=== PATIENT | male | born 1935 | race Caucasian/White ===

== ENCOUNTER 2017-08-01 13:38 | Inpatient (IN) | payer MEDICARE ==
[2017-08-01] MEDS ORDERED: Sodium Chloride 0.9% 2,000 ML IV ONE (15:27)
--- NOTE | 2017-08-01 15:27 | C.PDOC ---
History Of Present Illness 81 year old male presents to the ED as a referral from PMD for uncontrolled Diabetes Mellitus and hypotension. Family states patient has also had increased weakness for one month, decreased appetite, and 20 pound weight loss. Family denies fever or any other associated symptoms. REFERRED BY PMD FOR UNCONTROL DM, HYPOTENSION. FAMILY STATES W INCR WEAKNESS X 1 MO. DECREASED APPETITE, +20 LB WT LOSS. NO FEVER, OTHER SX. EXAM MILD DIST NONTOXIC HEENT MM DRY LUNGS CTA B/L NO W/R/R ABD NEG NEURO NO FOCAL DEF CV RRR POOR TURGOR REMAINDER NEG Time Seen by Provider: 08/01/17 15:19 Chief Complaint (Nursing): High Blood Sugar History Per: Patient History/Exam Limitations: no limitations Onset/Duration Of Symptoms: Worse Since (1 month) Current Symptoms Are (Timing): Still Present Associated Infectious Symptoms: denies: Vomiting, Diarrhea Recent travel outside of the [place]: No Additional History Per: Prior Records Past Medical History Reviewed: Historical Data, Nursing Documentation, Vital Signs Vital Signs: Last Vital Signs Temp 97.8 F 08/01/17 14:46 Pulse 77 08/01/17 16:24 Resp 19 08/01/17 16:24 BP 121/53 L 08/01/17 16:24 Pulse Ox 98 08/01/17 16:15 Family History: States: Unknown Family Hx - Social History Hx Alcohol Use: No Hx Substance Use: No - Immunization History Hx Tetanus Toxoid Vaccination: No Hx Influenza Vaccination: No Hx Pneumococcal Vaccination: No Review Of Systems Constitutional: Positive for: Weakness, Weight loss, Other (decreased appetite ) . Negative for: Fever, Chills Cardiovascular: Negative for: Chest Pain, Palpitations Respiratory: Negative for: Cough, Shortness of Breath Gastrointestinal: Negative for: Nausea, Vomiting, Abdominal Pain, Diarrhea Physical Exam - Physical Exam Appears: Non-toxic, In Acute Distress (mild distress) Skin: Warm, Dry, No Rash, Other (poor turgor) Head: Atraumatic, Normacephalic, No Tenderness Eye(s): bilateral: Normal Inspection, PERRL, EOMI Oral Mucosa: Dry Neck: Supple Chest: Symmetrical, No Deformity Cardiovascular: Rhythm Regular, No Murmur Gastrointestinal/Abdominal: Soft, No Tenderness, No Distention, No Guarding, No Rebound Extremity: Capillary Refill (<2 seconds ) Neurological/Psych: Other (no focal deficits) ED Course And Treatment - Laboratory Results Result Diagrams: 08/01/17 15:41 08/01/17 15:41 ECG: Interpreted By Me, Viewed By Me ECG Rhythm: Sinus Rhythm Interpretation Of ECG: Unchanged from EKG on 07/15/2017 Rate From EC O2 Sat by Pulse Oximetry: 98 (RA) Pulse Ox Interpretation: Normal Progress Note: CXR, blood work, labs, and EKG were ordered. Patient was given IV fluids. Progress - Re-Evaluation Re-evaluation Note: 08/01/17 15:55 D/W DR Afshan MOYER WILL ADMIT 08/01/17 16:15 D/W DR AGUSTIN [facility] ICU, WILL EVAL IN ER 08/01/17 16:[address] AGUSTIN ACCEPTS FOR ICU - Data Reviewed Data Reviewed: Lab, Diagnostic imaging, EKG, Old records - Critical Care Citical Care: Excluding Proc Time Critical Care Time: 90 minutes - Continuity of Care Discussed patient case with:: Patient, Family-HIPPA compliant Disposition Counseled Patient/Family Regarding: Studies Performed, Diagnosis, Need For Followup - Disposition Disposition: HOSPITALIZED Disposition Time: 16:30 Condition: SERIOUS Forms: [facility] ([place]) - Clinical Impression Clinical Impression: Hyperglycemia, Hyponatremia, Failure to thrive - Scribe Statement The provider has reviewed the documentation as recorded by the Scribe Aleyda Allan All medical record entries made by the Scribe were at my direction and personally dictated by me. I have reviewed the chart and agree that the record accurately reflects my personal performance of the history, physical exam, medical decision making, and the department course for this patient. I have also personally directed, reviewed, and agree with the discharge instructions and disposition. Decision To Admit - Pt Status Changed To: Hospital Disposition Of: Inpatient - Admit Certification Admit to Inpatient:: After my assessment, the patient will require hospitalization for at least two midnights. This is because of the severity of symptoms shown, intensity of services needed, and/or the medical risk in this patient being treated as an outpatient. - InPatient: Physician Admission Certification: I certify that this patient requires 2 or more midnights of care for the following reason:: SEE NOTE - . Bed Request Type: ICU Admitting Physician: Finn Myoer Patient Diagnosis: Hyperglycemia, Hyponatremia, Failure to thrive
[2017-08-01 15:50] LABS: BASO # 0.1 K/uL (0.0-0.2); BASO % 0.8 % (0.0-2.0); EOS % 0.1 % (0.0-4.0); HEMATOCRIT 39.6 % (35.0-51.0); LYMPH # 1.4 K/uL (1.0-4.3); LYMPH % 19.6 % (20.0-40.0); MEAN CELL VOLUME 93.3 fL (80.0-94.0); MEAN CORPUSCULAR HEMOGLOBIN 31.5 pg (27.0-31.0); MEAN CORPUSCULAR HGB CONC 33.7 g/dL (33.0-37.0); MEAN PLATELET VOLUME 8.8 fL (7.2-11.7); MONO # 0.9 K/uL (0.0-0.8); MONO % 12.4 % (0.0-10.0); NRBC % 0.1 % (0.0-2.0); RED CELL DISTRIBUTION WIDTH 12.5 % (11.5-14.5); WHITE BLOOD COUNT 7.1 K/uL (4.8-10.8)
[2017-08-01] MEDS ORDERED: Sodium Chloride 0.9% 1,000 ML ONE (15:56)
[2017-08-01 16:02] LABS: VENOUS BLOOD GAS BASE EXCESS -7.5 mmol/L (0.0-2.0); VENOUS BLOOD GAS PCO2 37 mmHg (40-60)
[2017-08-01 16:09] LABS: ALB/GLOB RATIO 1.1 (1.0-2.1); ALKALINE PHOSPHATASE 155 U/L (38-126); BILIRUBIN,TOTAL 0.9 mg/dL (0.2-1.3); BLOOD UREA NITROGEN 43 mg/dL (9-20); CALCIUM 8.9 mg/dl (8.6-10.4); CARBON DIOXIDE 19 mmol/L (22-30); CHLORIDE 86 mmol/L (98-107); GFR AFRICAN-AMERICAN 50; GLUCOSE,RANDOM 548 mg/dL (75-110); POTASSIUM 5.6 mmol/L (3.6-5.2); SODIUM 125 mmol/L (132-148); TOTAL PROTEIN 7.7 g/dL (6.3-8.3)
--- NOTE | 2017-08-01 16:12 | RAD ---
PROCEDURE: CHEST RADIOGRAPH, 1 VIEW HISTORY: Diabetic COMPARISON: None available. FINDINGS: LUNGS: The lungs are hyperinflated and there is peribronchial thickening with chronic changes in both lungs. No focal consolidation. PLEURA: No pneumothorax or pleural fluid seen. CARDIOVASCULAR: Normal. OSSEOUS STRUCTURES: No significant abnormalities. VISUALIZED UPPER ABDOMEN: Normal. OTHER FINDINGS: None. IMPRESSION: No active pulmonary disease. COPD.
[2017-08-01] MEDS ORDERED: (Novolin R) Insulin Human Regular 100 units/ml vial IV ONE ×2 (16:15→21:02)
[2017-08-01] MEDS ORDERED: (Novolin R) Insulin Human Regular 100 units/ml vial ONE (16:17)
[2017-08-01 16:47] LABS: ALT/SGPT 2427 U/L (21-72)
[2017-08-01 17:24] LABS: AST/SGOT 3578 U/L (17-59)
[2017-08-01] MEDS ORDERED: (Novolin R) Insulin Human Regular 100 units/ml vial IV STA (17:41)
--- NOTE | 2017-08-01 18:03 | CP.PCM.CON ---
History of Present Illness - History of Present Illness History of Present Illness: PGY1 ICU Consult Note for Dr. Martinez Reason for consult: DKA Patient is a 81 year old male with a past medical history of diabetes type 2 presenting to the emergency room with a complaint of increasing weakness for one week. The patient states he has a decreased appetite during the last week as well. He was instructed to come to the ED by his PMD. Patient reports that he was switched to insulin 7 months ago but switched back to oral medications due to poor compliance secondary to his active life style. He has never be admitted to the hospital for his diabetes before. His last hospitalization was over 10 years ago for a different illness. He lives at home with his . Patient denies any fevers, chills, nausea, vomiting, diarrhea, constipation, sob , chest pain, vision changes or headaches. PMH: Diabetes type 2 PSH: none Social: former smoker (quit 20 years ago), social drinker, denies illicit drug use Allergies: NKDA Review of Systems - Review of Systems All systems: reviewed and no additional remarkable complaints except (as per HPI ) Past Patient History - Past Social History Smoking Status: Never Smoked - ENDOCRINE/METABOLIC Hx Diabetes Mellitus Type 2: Yes - PSYCHIATRIC Hx Substance Use: No - SURGICAL HISTORY Hx Surgeries: No - ANESTHESIA Hx Anesthesia: No Meds Allergies/Adverse Reactions: Allergies Allergy/AdvReac Type Severity Reaction Status Date / Time No Known Allergies Allergy Verified 08/01/17 14:42 - Medications Medications: Current Medications Sodium Chloride (Sodium Chloride 0.9%) 1,000 mls @ 150 mls/hr IV .[id number] LOYDA Physical Exam - Constitutional Appears: Non-toxic, No Acute Distress - Head Exam Head Exam: ATRAUMATIC, NORMOCEPHALIC - Eye Exam Eye Exam: EOMI, Normal appearance Pupil Exam: PERRL - ENT Exam ENT Exam: Mucous Membranes Moist - Respiratory Exam Respiratory Exam: Clear to Auscultation Bilateral, NORMAL BREATHING PATTERN. absent: Accessory Muscle Use, Respiratory Distress - Cardiovascular Exam Cardiovascular Exam: REGULAR RHYTHM - GI/Abdominal Exam GI & Abdominal Exam: Soft. absent: Distended, Firm, Guarding, Rigid, Tenderness - Extremities Exam Extremities exam: Positive for: normal inspection, pedal pulses present. Negative for: calf tenderness, pedal edema, tenderness - Neurological Exam Neurological exam: Alert, Oriented x3 - Psychiatric Exam Additional comments: Lethargic - Skin Skin Exam: Dry, Normal Color, Warm Results - Vital Signs Recent Vital Signs: Last Vital Signs Temp 97.8 F 08/01/17 14:46 Pulse 77 08/01/17 16:24 Resp 19 08/01/17 16:24 BP 121/53 L 08/01/17 16:24 Pulse Ox 98 08/01/17 16:31 - Labs Result Diagrams: 08/01/17 15:41 08/01/17 15:41 Labs: Laboratory Results - last 24 hr 08/01/17 08/01/17 08/01/17 14:54 15:41 15:41 WBC 7.1 RBC 4.25 L Hgb 13.4 Hct 39.6 MCV 93.3 MCH 31.5 H MCHC 33.7 RDW 12.5 Plt Count 235 MPV 8.8 Neut % (Auto) 67.1 Lymph % (Auto) 19.6 L [place] % (Auto) 12.4 H Eos % (Auto) 0.1 Baso % (Auto) 0.8 Neut # 4.7 Lymph # 1.4 [place] # 0.9 H Eos # 0.0 Baso # 0.1 pO2 VBG pH VBG pCO2 VBG HCO3 VBG Total CO2 VBG O2 Sat (Calc) VBG Base Excess VBG Potassium Glucose Lactate Crit Value Called To Crit Value Called By Crit Value Read Back Blood Gas Notified Time Sodium 125 L Potassium 5.6 H Chloride 86 L Carbon Dioxide 19 L Anion Gap 26 H BUN 43 H Creatinine 1.6 H Est GFR ( Amer) 50 Est GFR (Non-Af Amer) 42 POC Glucose (mg/dL) 491 H* Random Glucose 548 H* Calcium 8.9 Total Bilirubin 0.9 AST 3578 H ALT 2427 H Alkaline Phosphatase 155 H Total Protein 7.7 Albumin 4.1 Globulin 3.6 Albumin/Globulin Ratio 1.1 Venous Blood Potassium Serum Ketones Small 08/01/17 08/01/17 15:58 16:58 WBC RBC Hgb Hct MCV MCH MCHC RDW Plt Count MPV Neut % (Auto) Lymph % (Auto) [place] % (Auto) Eos % (Auto) Baso % (Auto) Neut # Lymph # [place] # Eos # Baso # pO2 20 L VBG pH 7.30 L VBG pCO2 37 L VBG HCO3 17.1 VBG Total CO2 19.3 L VBG O2 Sat (Calc) 32.2 L VBG Base Excess -7.5 L VBG Potassium 5.5 H Glucose 483 H* Lactate 1.9 Crit Value Called To Dr. goins Crit Value Called By Dominik Crit Value Read Back Y Blood Gas Notified Time 1601 Sodium 124.0 L Potassium Chloride 86.0 L Carbon Dioxide Anion Gap BUN Creatinine Est GFR ( Amer) Est GFR (Non-Af Amer) POC Glucose (mg/dL) 465 H* Random Glucose Calcium Total Bilirubin AST ALT Alkaline Phosphatase Total Protein Albumin Globulin Albumin/Globulin Ratio Venous Blood Potassium 5.5 H Serum Ketones Assessment & Plan - Assessment and Plan (Free Text) Assessment: 81 year old male with a past medical history of diabetes type 2 presenting with weakness for 1 week, found to be in DKA. Plan: Endo: DKA Max Glucose 548 Anion Gap 20 VBG - pH 7.30 AST 3578 ALT 2427 Given 2L bolus of NS and 12 units of Novolin R IVP (6units x2) given in ED Started on NS @150mls/hr accuchecks q1h f/u repeat BMP Case discussed with Dr. Juan Hidalgo Julia PGY1
[2017-08-01] MEDS: Sodium Chloride 0.9% 1,000 ML IV SCH (18:05)
[2017-08-01 20:31] LABS: RBC URINE 12 /hpf (0-3); URINE BILIRUBIN NEGATIVE (NEGATIVE); URINE BLOOD 1+ (NEGATIVE); URINE COLOR Yellow (YELLOW); URINE GLUCOSE (UA) 3+ mg/dL (Normal); URINE KETONE 1+ mg/dL (NEGATIVE); URINE LEUKOCYTE ESTERASE NEG Leu/uL (Negative); URINE PROTEIN NEGATIVE (NEGATIVE); URINE UROBILINOGEN NORMAL mg/dL (0.2-1.0); WBC URINE 1 /hpf (0-5)
[2017-08-01 20:35] LABS: POTASSIUM 4.4 mmol/L (3.6-5.2)
[2017-08-01] MEDS ORDERED: Insulin Human Regular 100 UNIT in Sodium Chloride 0.9% 99 ML SC SCH (22:30)
[2017-08-01] MEDS ORDERED: Insulin Human Regular 100 UNIT in Sodium Chloride 0.9% 99 ML IV SCH (22:45)
[2017-08-02] MEDS: Sodium Chloride 0.9% 1,000 ML IV SCH ×3 (00:30→14:28)
[2017-08-02 04:17] LABS: BASO # 0.2 K/uL (0.0-0.2); EOS % 0.7 % (0.0-4.0); HEMATOCRIT 33.8 % (35.0-51.0); LYMPH % 14.1 % (20.0-40.0); MEAN CELL VOLUME 90.5 fL (80.0-94.0); MEAN CORPUSCULAR HEMOGLOBIN 31.1 pg (27.0-31.0); MEAN CORPUSCULAR HGB CONC 34.3 g/dL (33.0-37.0); MEAN PLATELET VOLUME 8.3 fL (7.2-11.7); MONO # 0.8 K/uL (0.0-0.8); MONO % 11.5 % (0.0-10.0); NRBC % 0.1 % (0.0-2.0); RED CELL DISTRIBUTION WIDTH 11.8 % (11.5-14.5)
[2017-08-02 06:45] LABS: ALB/GLOB RATIO 0.9 (1.0-2.1); ALKALINE PHOSPHATASE 155 U/L (38-126); BILIRUBIN,TOTAL 0.6 mg/dL (0.2-1.3); BLOOD UREA NITROGEN 35 mg/dL (9-20); CARBON DIOXIDE 27 mmol/L (22-30); CHLORIDE 96 mmol/L (98-107); GFR AFRICAN-AMERICAN > 60; GLUCOSE,RANDOM 196 mg/dL (75-110); MAGNESIUM 1.7 mg/dL (1.6-2.3); PHOSPHOROUS 2.2 mg/dL (2.5-4.5); POTASSIUM 3.9 mmol/L (3.6-5.2); SODIUM 127 mmol/L (132-148); TOTAL PROTEIN 6.6 g/dL (6.3-8.3)
[2017-08-02 07:00] LABS: ALT/SGPT 2785 U/L (21-72); AST/SGOT 3732 U/L (17-59)
[2017-08-02] MEDS: Pantoprazole 40 mg EC Tab PO SCH (09:59)
--- NOTE | 2017-08-02 10:08 | CP.PCM.HP ---
History of Present Illness - History of Present Illness History of Present Illness: CC: Weak 81 y/o male with NOIDDM, Hyperlipidemia & ? HTN. Pt felt weak a nd a has feq/ polyuria. He was seen in office and noted naun GREEN - advise ER. Pt noted abn LFT, hyponatreimic and was admitted. Present on Admission - Present on Admission Any Indicators Present on Admission: Yes History of DVT/PE: No History of Uncontrolled Diabetes: No Urinary Catheter: No Decubitus Ulcer Present: No Review of Systems - Review of Systems Systems not reviewed;Unavailable: Acuity of Condition - Constitutional Constitutional: Fatigue, Weakness. absent: Fever, Headache, Increased Appetite , Night Sweats, Weight Loss - EENT Eyes: Sees Flashes. absent: Diplopia, Loss of Peripheral Vision, Pain, Loss of Vision Ears: Dizziness. absent: Ear Discharge, Ear Pain, Tinnitus, Disequilibrium Nose/Mouth/Throat: absent: Nasal Congestion, Nasal Trauma, Bleeding Gums, Dysphagia, Facial Pain - Cardiovascular Cardiovascular: absent: Chest Pain, Diaphoresis, Irregular Heart Rhythm, Leg Edema - Respiratory Respiratory: Cough. absent: Snoring, Pain on Inspiration, Chest Congestion - Gastrointestinal Gastrointestinal: absent: Bloating, Dyspepsia, Dysphagia, Heartburn, Nausea, Vomiting - Musculoskeletal Musculoskeletal: absent: Abnormal Gait, Atrophy, Back Pain, Loss of Height, Myalgias, Numbness - Integumentary Integumentary: absent: Alopecia, Lesions, New Lesions, Rash, Skin Pain Past Patient History - Infectious Disease Hx of Infectious Diseases: None - Past Medical History & Family History Past Medical History?: Yes - Past Social History Smoking Status: Former Smoker - CARDIAC Hx Cardiac Disorders: No Hx Angina: No Hx Atrial Fibrillation: No Hx Cardia Arrhythmia: No Hx Circulatory Problems: No Hx Congestive Heart Failure: No Hx Heart Attack: No Hx Heart Murmur: No Hx Heart Transplant: No Hx Hypercholesterolemia: No Hx Hypertension: No Hx Hypotension: No Hx Internal Defibrillator: No Hx Mitral Valve Prolapse: No Hx Pacemaker: No Hx Peripheral Edema: No Hx Peripheral Vascular Disease: No - PULMONARY Hx Respiratory Disorders: No - NEUROLOGICAL Hx Dizziness: Yes - HEENT Hx Cataracts: Yes - RENAL Hx Chronic Kidney Disease: No - ENDOCRINE/METABOLIC Hx Diabetes Mellitus Type 2: Yes - HEMATOLOGICAL/ONCOLOGICAL Hx Blood Disorders: No - INTEGUMENTARY Hx Dermatological Problems: No - MUSCULOSKELETAL/RHEUMATOLOGICAL Hx Falls: No - GASTROINTESTINAL Hx Constipation: Yes - GENITOURINARY/GYNECOLOGICAL Hx Genitourinary Disorders: No - PSYCHIATRIC Hx Substance Use: No - SURGICAL HISTORY Hx Surgeries: No - ANESTHESIA Hx Anesthesia: No Meds Allergies/Adverse Reactions: Allergies Allergy/AdvReac Type Severity Reaction Status Date / Time No Known Allergies Allergy Verified 08/01/17 14:42 Physical Exam - Constitutional Appears: No Acute Distress - Eye Exam Eye Exam: Normal appearance - ENT Exam ENT Exam: Mucous Membranes Moist - Neck Exam Neck exam: Negative for: Full Rom, Lymphadenopathy, Thyromegaly - Respiratory Exam Respiratory Exam: Decreased Breath Sounds. absent: Rales, Rhonchi, Wheezes - Cardiovascular Exam Cardiovascular Exam: +S1, +S2. absent: Gallop, REGULAR RHYTHM, Systolic Murmur - GI/Abdominal Exam GI & Abdominal Exam: Soft. absent: Mass, Tenderness - Extremities Exam Extremities exam: Positive for: full ROM, normal capillary refill. Negative for : calf tenderness, joint swelling, pedal edema Results - Vital Signs Recent Vital Signs: Last Vital Signs Temp 100.1 F H 08/02/17 03:34 Pulse 87 08/02/17 07:49 Resp 15 08/02/17 07:49 BP 140/66 08/02/17 07:49 Pulse Ox 97 08/02/17 01:40 - Labs Result Diagrams: 08/02/17 04:12 08/02/17 04:12 Labs: Laboratory Results - last 24 hr 08/01/17 08/01/17 08/01/17 14:54 15:41 15:41 WBC 7.1 RBC 4.25 L Hgb 13.4 Hct 39.6 MCV 93.3 MCH 31.5 H MCHC 33.7 RDW 12.5 Plt Count 235 MPV 8.8 Neut % (Auto) 67.1 Lymph % (Auto) 19.6 L [place] % (Auto) 12.4 H Eos % (Auto) 0.1 Baso % (Auto) 0.8 Neut # 4.7 Lymph # 1.4 [place] # 0.9 H Eos # 0.0 Baso # 0.1 pO2 VBG pH VBG pCO2 VBG HCO3 VBG Total CO2 VBG O2 Sat (Calc) VBG Base Excess VBG Potassium Glucose Lactate Crit Value Called To Crit Value Called By Crit Value Read Back Blood Gas Notified Time Sodium 125 L Potassium 5.6 H Chloride 86 L Carbon Dioxide 19 L Anion Gap 26 H BUN 43 H Creatinine 1.6 H Est GFR ( Amer) 50 Est GFR (Non-Af Amer) 42 POC Glucose (mg/dL) 491 H* Random Glucose 548 H* Calcium 8.9 Phosphorus Magnesium Total Bilirubin 0.9 AST 3578 H ALT 2427 H Alkaline Phosphatase 155 H Total Protein 7.7 Albumin 4.1 Globulin 3.6 Albumin/Globulin Ratio 1.1 Venous Blood Potassium Urine Color Urine Clarity Urine pH Ur Specific [place] Urine Protein Urine Glucose (UA) Urine Ketones Urine Blood Urine Nitrate Urine Bilirubin Urine Urobilinogen Ur Leukocyte Esterase Urine WBC (Auto) Urine RBC (Auto) Ur Squamous Epith Cells Serum Ketones Small 08/01/17 08/01/17 08/01/17 15:58 16:58 18:14 WBC RBC Hgb Hct MCV MCH MCHC RDW Plt Count MPV Neut % (Auto) Lymph % (Auto) [place] % (Auto) Eos % (Auto) Baso % (Auto) Neut # Lymph # [place] # Eos # Baso # pO2 20 L VBG pH 7.30 L VBG pCO2 37 L VBG HCO3 17.1 VBG Total CO2 19.3 L VBG O2 Sat (Calc) 32.2 L VBG Base Excess -7.5 L VBG Potassium 5.5 H Glucose 483 H* Lactate 1.9 Crit Value Called To Dr. goins Crit Value Called By Dominik Crit Value Read Back Y Blood Gas Notified Time 1601 Sodium 124.0 L Potassium Chloride 86.0 L Carbon Dioxide Anion Gap BUN Creatinine Est GFR ( Amer) Est GFR (Non-Af Amer) POC Glucose (mg/dL) 465 H* 402 H* Random Glucose Calcium Phosphorus Magnesium Total Bilirubin AST ALT Alkaline Phosphatase Total Protein Albumin Globulin Albumin/Globulin Ratio Venous Blood Potassium 5.5 H Urine Color Urine Clarity Urine pH Ur Specific [place] Urine Protein Urine Glucose (UA) Urine Ketones Urine Blood Urine Nitrate Urine Bilirubin Urine Urobilinogen Ur Leukocyte Esterase Urine WBC (Auto) Urine RBC (Auto) Ur Squamous Epith Cells Serum Ketones 08/01/17 08/01/17 08/01/17 20:03 20:15 20:15 WBC RBC Hgb Hct MCV MCH MCHC RDW Plt Count MPV Neut % (Auto) Lymph % (Auto) [place] % (Auto) Eos % (Auto) Baso % (Auto) Neut # Lymph # [place] # Eos # Baso # pO2 VBG pH VBG pCO2 VBG HCO3 VBG Total CO2 VBG O2 Sat (Calc) VBG Base Excess VBG Potassium Glucose Lactate Crit Value Called To Crit Value Called By Crit Value Read Back Blood Gas Notified Time Sodium 125 L Potassium 4.4 Chloride 91 L Carbon Dioxide 24 Anion Gap 14 BUN 41 H Creatinine 1.5 Est GFR ( Amer) 54 Est GFR (Non-Af Amer) 45 POC Glucose (mg/dL) > 500 H* Random Glucose 403 H* D Calcium 8.0 L Phosphorus Magnesium Total Bilirubin AST ALT Alkaline Phosphatase Total Protein Albumin Globulin Albumin/Globulin Ratio Venous Blood Potassium Urine Color Yellow Urine Clarity Clear Urine pH 5.0 Ur Specific [place] 1.022 Urine Protein Negative Urine Glucose (UA) 3+ H Urine Ketones 1+ H Urine Blood 1+ H Urine Nitrate Negative Urine Bilirubin Negative Urine Urobilinogen Normal Ur Leukocyte Esterase Neg Urine WBC (Auto) 1 Urine RBC (Auto) 12 H Ur Squamous Epith Cells < 1 Serum Ketones 08/01/17 08/01/17 08/02/17 22:05 23:17 00:04 WBC RBC Hgb Hct MCV MCH MCHC RDW Plt Count MPV Neut % (Auto) Lymph % (Auto) [place] % (Auto) Eos % (Auto) Baso % (Auto) Neut # Lymph # [place] # Eos # Baso # pO2 VBG pH VBG pCO2 VBG HCO3 VBG Total CO2 VBG O2 Sat (Calc) VBG Base Excess VBG Potassium Glucose Lactate Crit Value Called To Crit Value Called By Crit Value Read Back Blood Gas Notified Time Sodium Potassium Chloride Carbon Dioxide Anion Gap BUN Creatinine Est GFR ( Amer) Est GFR (Non-Af Amer) POC Glucose (mg/dL) 333 H 267 H 261 H Random Glucose Calcium Phosphorus Magnesium Total Bilirubin AST ALT Alkaline Phosphatase Total Protein Albumin Globulin Albumin/Globulin Ratio Venous Blood Potassium Urine Color Urine Clarity Urine pH Ur Specific [place] Urine Protein Urine Glucose (UA) Urine Ketones Urine Blood Urine Nitrate Urine Bilirubin Urine Urobilinogen Ur Leukocyte Esterase Urine WBC (Auto) Urine RBC (Auto) Ur Squamous Epith Cells Serum Ketones 08/02/17 08/02/17 08/02/17 01:11 02:12 03:06 WBC RBC Hgb Hct MCV MCH MCHC RDW Plt Count MPV Neut % (Auto) Lymph % (Auto) [place] % (Auto) Eos % (Auto) Baso % (Auto) Neut # Lymph # [place] # Eos # Baso # pO2 VBG pH VBG pCO2 VBG HCO3 VBG Total CO2 VBG O2 Sat (Calc) VBG Base Excess VBG Potassium Glucose Lactate Crit Value Called To Crit Value Called By Crit Value Read Back Blood Gas Notified Time Sodium Potassium Chloride Carbon Dioxide Anion Gap BUN Creatinine Est GFR ( Amer) Est GFR (Non-Af Amer) POC Glucose (mg/dL) 261 H 212 H 223 H Random Glucose Calcium Phosphorus Magnesium Total Bilirubin AST ALT Alkaline Phosphatase Total Protein Albumin Globulin Albumin/Globulin Ratio Venous Blood Potassium Urine Color Urine Clarity Urine pH Ur Specific [place] Urine Protein Urine Glucose (UA) Urine Ketones Urine Blood Urine Nitrate Urine Bilirubin Urine Urobilinogen Ur Leukocyte Esterase Urine WBC (Auto) Urine RBC (Auto) Ur Squamous Epith Cells Serum Ketones 08/02/17 08/02/17 08/02/17 03:57 04:12 04:12 WBC 7.0 RBC 3.73 L Hgb 11.6 L Hct 33.8 L MCV 90.5 D MCH 31.1 H MCHC 34.3 RDW 11.8 Plt Count 199 MPV 8.3 Neut % (Auto) 70.7 Lymph % (Auto) 14.1 L [place] % (Auto) 11.5 H Eos % (Auto) 0.7 Baso % (Auto) 3.0 H Neut # 5.0 Lymph # 1.0 [place] # 0.8 Eos # 0.0 Baso # 0.2 pO2 VBG pH VBG pCO2 VBG HCO3 VBG Total CO2 VBG O2 Sat (Calc) VBG Base Excess VBG Potassium Glucose Lactate Crit Value Called To Crit Value Called By Crit Value Read Back Blood Gas Notified Time Sodium 127 L Potassium 3.9 Chloride 96 L Carbon Dioxide 27 Anion Gap 7 L BUN 35 H Creatinine 1.1 Est GFR ( Amer) > 60 Est GFR (Non-Af Amer) > 60 POC Glucose (mg/dL) 208 H Random Glucose 196 H Calcium 8.0 L Phosphorus 2.2 L Magnesium 1.7 Total Bilirubin 0.6 AST 3732 H ALT 2785 H Alkaline Phosphatase 155 H Total Protein 6.6 Albumin 3.1 L D Globulin 3.5 Albumin/Globulin Ratio 0.9 L Venous Blood Potassium Urine Color Urine Clarity Urine pH Ur Specific [place] Urine Protein Urine Glucose (UA) Urine Ketones Urine Blood Urine Nitrate Urine Bilirubin Urine Urobilinogen Ur Leukocyte Esterase Urine WBC (Auto) Urine RBC (Auto) Ur Squamous Epith Cells Serum Ketones 08/02/17 08/02/17 08/02/17 05:32 06:05 07:13 WBC RBC Hgb Hct MCV MCH MCHC RDW Plt Count MPV Neut % (Auto) Lymph % (Auto) [place] % (Auto) Eos % (Auto) Baso % (Auto) Neut # Lymph # [place] # Eos # Baso # pO2 VBG pH VBG pCO2 VBG HCO3 VBG Total CO2 VBG O2 Sat (Calc) VBG Base Excess VBG Potassium Glucose Lactate Crit Value Called To Crit Value Called By Crit Value Read Back Blood Gas Notified Time Sodium Potassium Chloride Carbon Dioxide Anion Gap BUN Creatinine Est GFR ( Amer) Est GFR (Non-Af Amer) POC Glucose (mg/dL) 158 H 148 H 183 H Random Glucose Calcium Phosphorus Magnesium Total Bilirubin AST ALT Alkaline Phosphatase Total Protein Albumin Globulin Albumin/Globulin Ratio Venous Blood Potassium Urine Color Urine Clarity Urine pH Ur Specific [place] Urine Protein Urine Glucose (UA) Urine Ketones Urine Blood Urine Nitrate Urine Bilirubin Urine Urobilinogen Ur Leukocyte Esterase Urine WBC (Auto) Urine RBC (Auto) Ur Squamous Epith Cells Serum Ketones 08/02/17 08:11 WBC RBC Hgb Hct MCV MCH MCHC RDW Plt Count MPV Neut % (Auto) Lymph % (Auto) [place] % (Auto) Eos % (Auto) Baso % (Auto) Neut # Lymph # [place] # Eos # Baso # pO2 VBG pH VBG pCO2 VBG HCO3 VBG Total CO2 VBG O2 Sat (Calc) VBG Base Excess VBG Potassium Glucose Lactate Crit Value Called To Crit Value Called By Crit Value Read Back Blood Gas Notified Time Sodium Potassium Chloride Carbon Dioxide Anion Gap BUN Creatinine Est GFR ( Amer) Est GFR (Non-Af Amer) POC Glucose (mg/dL) 181 H Random Glucose Calcium Phosphorus Magnesium Total Bilirubin AST ALT Alkaline Phosphatase Total Protein Albumin Globulin Albumin/Globulin Ratio Venous Blood Potassium Urine Color Urine Clarity Urine pH Ur Specific [place] Urine Protein Urine Glucose (UA) Urine Ketones Urine Blood Urine Nitrate Urine Bilirubin Urine Urobilinogen Ur Leukocyte Esterase Urine WBC (Auto) Urine RBC (Auto) Ur Squamous Epith Cells Serum Ketones - EKG Data EKG Interpreted by: Myself - EKG Data When Compared to Previous EKG: No Significant Change Assessment & Plan - Assessment and Plan (Free Text) Assessment: Unc NIDDM; hyponatremia/ abn LFT hyperlipidemia Cont meds/ On insulin check RUQ sono
[2017-08-02] MEDS ORDERED: Insulin Detemir 100 units/ml Vial (Levemir) SC SCH (10:15)
[2017-08-02] MEDS: (Novolin R) Insulin Human Regular 100 units/ml vial SC SCH ×3 (11:28→22:23)
--- NOTE | 2017-08-02 13:24 | US ---
HISTORY: very abn LFT COMPARISON: None available TECHNIQUE: Sonographic evaluation of the abdomen. FINDINGS: LIVER: Measures 15.2 cm in sagittal dimension. Echogenic liver may be seen in setting of hepatic parenchymal disease or fatty infiltration. No focal hepatic mass identified. The main portal vein appears patent with normal directional flow. No intrahepatic bile duct dilatation. GALLBLADDER: No gallstones. No gallbladder wall thickening. Negative sonographic Calixto's sign as assessed by the missile inspector. COMMON BILE DUCT: Measures 3 mm. PANCREAS: Not well visualized. RIGHT KIDNEY: Measures 10.0 x 4.5 x 4.7cm. No obstructing calculus or hydronephrosis identified. LEFT KIDNEY: Measures 10.2 x 5.5 x 4.8cm. No obstructing calculus or hydronephrosis identified. SPLEEN: Measures approximately 9.3 cm. AORTA: Limited views appear unremarkable. IVC: Not well-visualized. OTHER FINDINGS: None. IMPRESSION: Echogenic liver may be seen in setting of hepatic parenchymal disease or fatty infiltration.
[2017-08-02] MEDS ORDERED: Propofol 10 mg/ml Inj (20 ML) ONE (16:47)
[2017-08-03] MEDS: (Novolin R) Insulin Human Regular 100 units/ml vial SC SCH ×4 (07:53→21:36)
--- NOTE | 2017-08-03 09:15 | CP.PCM.PN ---
Subjective - Date & Time of Evaluation Date of Evaluation: 08/03/17 Time of Evaluation: 09:05 - Subjective Subjective: Pt no complain; Still feels slight weak No CP, no SOB, no n/v; BS is high at 300,s (+) mild cpough w/ white / slight yellowish mucus Objective - Vital Signs/Intake and Output Vital Signs (last 24 hours): Temp Pulse Resp BP Pulse Ox 98.0 F 77 22 120/66 100 08/03/17 08:00 08/03/17 07:50 08/03/17 07:50 08/03/17 07:50 08/03/17 07:50 Intake and Output: 08/03/17 08/03/17 06:59 18:59 Intake Total 3660 Output Total 0 Balance 3660 - Medications Medications: Current Medications Heparin Sodium (Porcine) (Heparin) 5,000 units SC Q12 [facility] Last Admin: 08/02/17 22:23 Dose: 5,000 units Sodium Chloride (Sodium Chloride 0.9%) 1,000 mls @ 150 mls/hr IV .Q6H40M [facility] Last Admin: 08/02/17 14:28 Dose: 150 mls/hr Insulin Detemir (Levemir) 5 unit SC DAILY [facility] Stop: 08/04/17 23:59 Last Admin: 08/02/17 10:29 Dose: 5 unit Insulin Human Regular (Novolin R) 0 unit SC ACHS [facility] PRN Reason: Protocol Last Admin: 08/03/17 07:53 Dose: 8 unit Pantoprazole Sodium (Protonix Ec Tab) 40 mg PO DAILY [facility] Last Admin: 08/02/17 09:59 Dose: 40 mg - Labs Labs: 08/02/17 04:12 08/02/17 04:12 - Constitutional Appears: No Acute Distress - Eye Exam Eye Exam: Normal appearance - ENT Exam ENT Exam: Mucous Membranes Moist - Neck Exam Neck Exam: Full ROM. absent: Lymphadenopathy - Respiratory Exam Respiratory Exam: Clear to Ausculation Bilateral. absent: Rales, Rhonchi, Wheezes - Cardiovascular Exam Cardiovascular Exam: REGULAR RHYTHM, +S1, +S2. absent: Gallop, JVD - GI/Abdominal Exam GI & Abdominal Exam: Soft. absent: Tenderness, Mass - Extremities Exam Extremities Exam: Normal Capillary Refill. absent: Joint Swelling Assessment and Plan - Assessment and Plan (Free Text) Assessment: ? early Bronchitis Unc NIDDM; abn LFT - fatty liver Inc levemir Cont meds ? transfer to floor
[2017-08-03] MEDS: Pantoprazole 40 mg EC Tab PO SCH (09:50)
[2017-08-03] MEDS ORDERED: Insulin Detemir 100 units/ml Vial (Levemir) SC SCH (10:00)
[2017-08-03] MEDS: Sodium Chloride 0.9% 1,000 ML IV SCH ×3 (13:41→22:15)
[2017-08-03] MEDS: Albuterol-Ipratrop 3 mg / 0.5 (3 ml) UD INH SCH (21:54)
[2017-08-04] MEDS: Albuterol-Ipratrop 3 mg / 0.5 (3 ml) UD INH SCH ×4 (07:58→20:32)
[2017-08-04] MEDS: (Novolin R) Insulin Human Regular 100 units/ml vial SC SCH ×4 (08:30→21:17)
--- NOTE | 2017-08-04 09:50 | CP.PCM.PN ---
Subjective - Date & Time of Evaluation Date of Evaluation: 08/04/17 Time of Evaluation: 09:07 - Subjective Subjective: Pt cough is much looser. Mucus is clear his AM No CP, no SOB, no edema, no palpitation Unsteady going to bathroom. Need to hold on wall even w/ supporting him Objective - Vital Signs/Intake and Output Vital Signs (last 24 hours): Temp Pulse Resp BP Pulse Ox 98 F 71 20 100/60 97 08/04/17 08:24 08/04/17 08:24 08/04/17 08:24 08/04/17 08:24 08/04/17 08:24 Intake and Output: 08/04/17 08/04/17 06:59 18:59 Intake Total 1450 Output Total 400 Balance 1050 - Medications Medications: Current Medications Albuterol/Ipratropium (Duoneb 3 Mg/0.5 Mg (3 Ml) Ud) 3 ml INH RQID [facility] Last Admin: 08/04/17 07:58 Dose: 3 ml Azithromycin (Zithromax) 250 mg PO DAILY [facility] Heparin Sodium (Porcine) (Heparin) 5,000 units SC Q12 [facility] Last Admin: 08/03/17 21:54 Dose: 5,000 units Sodium Chloride (Sodium Chloride 0.9%) 1,000 mls @ 150 mls/hr IV .Q6H40M [facility] Last Admin: 08/03/17 22:15 Dose: 150 mls/hr Insulin Detemir (Levemir) 16 unit SC DAILY [facility] Insulin Human Regular (Novolin R) 0 unit SC ACHS [facility] PRN Reason: Protocol Last Admin: 08/04/17 08:30 Dose: 3 unit Pantoprazole Sodium (Protonix Ec Tab) 40 mg PO DAILY [facility] Last Admin: 08/03/17 09:50 Dose: 40 mg Pneumococcal Polyvalent Vaccine (Pneumovax 23 Vaccine) 0.5 ml IM .ONCE ONE Stop: 08/04/17 10:01 - Labs Labs: 08/02/17 04:12 08/02/17 04:12 - Constitutional Appears: No Acute Distress - Eye Exam Eye Exam: Normal appearance - ENT Exam ENT Exam: Mucous Membranes Moist - Neck Exam Neck Exam: absent: Lymphadenopathy, Normal Inspection - Respiratory Exam Respiratory Exam: Decreased Breath Sounds. absent: Rales, Rhonchi, Wheezes - Cardiovascular Exam Cardiovascular Exam: REGULAR RHYTHM, +S1, +S2, Murmur. absent: Gallop, JVD - GI/Abdominal Exam GI & Abdominal Exam: Soft. absent: Tenderness, Mass - Extremities Exam Extremities Exam: Full ROM, Normal Capillary Refill. absent: Calf Tenderness, Joint Swelling, Pedal Edema Assessment and Plan - Assessment and Plan (Free Text) Assessment: Unc NIDDM; Ac Bronchitis General debilityl; Abn LFT Dehydration w/ hyponatremia Cont meds For Sub acute Recheck labs
[2017-08-04] MEDS ORDERED: Influenza Vaccine 60 mcg/0.5 mL SYR (4YR UP) IM ONE (10:00)
[2017-08-04] MEDS ORDERED: Pneumococcal 23-Valent Vaccine IM ONE (10:00)
[2017-08-04] MEDS: Sodium Chloride 0.9% 1,000 ML IV SCH (11:00)
[2017-08-04] MEDS: Insulin Detemir 100 units/ml Vial (Levemir) SC SCH (11:00)
[2017-08-04] MEDS: Pantoprazole 40 mg EC Tab PO SCH (11:00)
[2017-08-05] MEDS: Sodium Chloride 0.9% 1,000 ML IV SCH ×2 (07:04→13:14)
[2017-08-05] MEDS: Albuterol-Ipratrop 3 mg / 0.5 (3 ml) UD INH SCH ×4 (07:22→19:29)
[2017-08-05 08:00] LABS: BASO # 0.1 K/uL (0.0-0.2); BASO % 0.8 % (0.0-2.0); EOS # 0.3 K/uL (0.0-0.7); EOS % 2.3 % (0.0-4.0); HEMATOCRIT 32.4 % (35.0-51.0); LYMPH # 6.6 K/uL (1.0-4.3); LYMPH % 59.7 % (20.0-40.0); MEAN CORPUSCULAR HEMOGLOBIN 30.9 pg (27.0-31.0); MEAN CORPUSCULAR HGB CONC 33.4 g/dL (33.0-37.0); MEAN PLATELET VOLUME 9.3 fL (7.2-11.7); MONO # 0.9 K/uL (0.0-0.8); MONO % 7.8 % (0.0-10.0); NRBC % 0.1 % (0.0-2.0); RED CELL DISTRIBUTION WIDTH 12.5 % (11.5-14.5)
[2017-08-05 08:07] LABS: MEAN CELL VOLUME 92.5 fL (80.0-94.0)
[2017-08-05] MEDS: (Novolin R) Insulin Human Regular 100 units/ml vial SC SCH ×4 (08:19→22:01)
[2017-08-05 08:31] LABS: ALB/GLOB RATIO 1.1 (1.0-2.1); ALKALINE PHOSPHATASE 207 U/L (38-126); ALT/SGPT 931 U/L (21-72); AST/SGOT 319 U/L (17-59); BILIRUBIN,TOTAL 1.2 mg/dL (0.2-1.3); BLOOD UREA NITROGEN 10 mg/dL (9-20); CALCIUM 7.6 mg/dl (8.6-10.4); CARBON DIOXIDE 24 mmol/L (22-30); CHLORIDE 104 mmol/L (98-107); GFR AFRICAN-AMERICAN > 60; GLUCOSE,RANDOM 208 mg/dL (75-110); POTASSIUM 3.9 mmol/L (3.6-5.2); SODIUM 135 mmol/L (132-148); TOTAL PROTEIN 5.2 g/dL (6.3-8.3)
--- NOTE | 2017-08-05 08:39 | CP.PCM.PN ---
Subjective - Date & Time of Evaluation Date of Evaluation: 08/05/17 Time of Evaluation: 08:15 - Subjective Subjective: Pt did not sleep last night c/o cough. Mucus is now whitish and loose. DBP 45 last night?/ States lay down & get SOB and need to sit up Objective - Vital Signs/Intake and Output Vital Signs (last 24 hours): Temp Pulse Resp BP Pulse Ox 97.8 F 75 20 130/63 97 08/05/17 07:43 08/05/17 07:43 08/05/17 07:43 08/05/17 07:43 08/05/17 07:43 Intake and Output: 08/05/17 08/05/17 06:59 18:59 Intake Total 600 Balance 600 - Medications Medications: Current Medications Albuterol/Ipratropium (Duoneb 3 Mg/0.5 Mg (3 Ml) Ud) 3 ml INH RQID [facility] Last Admin: 08/05/17 07:22 Dose: 3 ml Azithromycin (Zithromax) 250 mg PO DAILY [facility] Last Admin: 08/04/17 11:00 Dose: 250 mg Heparin Sodium (Porcine) (Heparin) 5,000 units SC Q12 [facility] Last Admin: 08/04/17 21:30 Dose: 5,000 units Sodium Chloride (Sodium Chloride 0.9%) 1,000 mls @ 75 mls/hr IV .[id number] [facility] Last Admin: 08/05/17 07:04 Dose: Not Given Insulin Detemir (Levemir) 16 unit SC DAILY [facility] Last Admin: 08/04/17 11:00 Dose: 16 unit Insulin Human Regular (Novolin R) 0 unit SC ACHS [facility] PRN Reason: Protocol Last Admin: 08/05/17 08:19 Dose: 3 unit Pantoprazole Sodium (Protonix Ec Tab) 40 mg PO DAILY [facility] Last Admin: 08/04/17 11:00 Dose: 40 mg - Labs Labs: 08/05/17 07:44 08/05/17 07:44 - Constitutional Appears: No Acute Distress - Eye Exam Eye Exam: Normal appearance - ENT Exam ENT Exam: Mucous Membranes Moist - Neck Exam Neck Exam: Full ROM. absent: Thyromegaly - Respiratory Exam Respiratory Exam: Clear to Ausculation Bilateral. absent: Rhonchi, Wheezes - Cardiovascular Exam Cardiovascular Exam: REGULAR RHYTHM, +S1, +S2, Murmur. absent: Gallop - GI/Abdominal Exam GI & Abdominal Exam: Soft - Extremities Exam Extremities Exam: Full ROM, Normal Capillary Refill. absent: Calf Tenderness, Joint Swelling, Pedal Edema Assessment and Plan - Assessment and Plan (Free Text) Assessment: Atyp Chest ain; Ac Bronchitis NIDDM; abn LFT For troponin and ProBNP Cont supportive cre Crdio opinion
[2017-08-05] MEDS: Pantoprazole 40 mg EC Tab PO SCH (09:42)
[2017-08-05] MEDS: Insulin Detemir 100 units/ml Vial (Levemir) SC SCH (09:42)
[2017-08-05] MEDS ORDERED: Promethazine DM 12.5 mg-30 mg/10 ml Syrup PO PRN (19:05)
--- NOTE | 2017-08-05 21:23 | CP.PCM.CON ---
History of Present Illness - History of Present Illness History of Present Illness: I was asked to see patient by Dr Merchant. Patient is a 81 year old male with PMH HTn, hypercholesterolemia DM who presents with dizzienss and near syncope. The patient states he was at a praty with his family. He ate more than usual. He was noted to have elevated blood sugar, and developed dizziness. He had a near syncopal event. He presented to [facility] for furtehr management. The patient deneis previous chest pain or dyspnea. Review of Systems - Constitutional Constitutional: absent: As Per HPI, Anorexia, Chills, Daytime Sleepiness, Excessive Sweating, Fatigue, Fever, Frequent Falls, Headache, Increased Appetite , Lethargy, Malaise, Night Sweats, Snoring, Sleep Apnea, Weight Gain, Weight Loss, Weakness, Other - EENT Eyes: absent: As Per HPI, Blind Spots, Blurred Vision, Change in Vision, Decreased Night Vision, Diplopia, Discharge, Dry Eye, Exophthalmos, Floaters, Irritation, Itchy Eyes, Loss of Peripheral Vision, Pain, Photophobia, Requires Corrective Lenses, Sees Flashes, Spots in Vision, Tunnel Vision, Other Visual Disturbances, Loss of Vision, Other Ears: absent: As Per HPI, Decreased Hearing, Ear Discharge, Ear Pain, Tinnitus, Abnormal Hearing, Disequilibrium, Dizziness, Other Nose/Mouth/Throat: absent: As Per HPI, Epistaxis, Nasal Congestion, Nasal Discharge, Nasal Obstruction, Nasal Trauma, Nose Pain, Post Nasal Drip, Sinus Pain, Sinus Pressure, Bleeding Gums, Change in Voice, Dental Pain, Dry Mouth, Dysphagia, Halitosis, Hoarsness, Lip Swelling, Mouth Lesions, Mouth Pain, Odynophagia, Sore Throat, Throat Swelling, Tongue Swelling, Facial Pain, Neck Pain, Neck Mass, Other - Cardiovascular Cardiovascular: Syncope - Respiratory Respiratory: absent: As Per HPI, Cough, Dyspnea, Hemoptysis, Dyspnea on Exertion , Wheezing, Snoring, Stridor, Pain on Inspiration, Chest Congestion, Excessive Mucous Production, Change in Mucous Color, Pain with Coughing, Other - Gastrointestinal Gastrointestinal: absent: As Per HPI, Abdominal Pain, Belching, Bloating, Change in Bowel Habits, Change in Stool Character, Coffee Ground Emesis, Constipation, Cramping, Diarrhea, Dyspepsia, Dysphagia, Early Satiety, Excessive Flatus, Fecal Incontinence, Heartburn, Hematemesis, Hematochezia, Loose Stools, Melena, Nausea, Odynophagia, Temesmus, Vomiting, Other - Musculoskeletal Musculoskeletal: absent: As Per HPI, Abnormal Gait, Arthralgias, Atrophy, Back Pain, Deformity, Joint Swelling, Limited Range of Motion, Loss of Height, Muscle Cramps, Muscle Weakness, Myalgias, Neck Pain, Numbness, Radiating Pain into Limb, Stiffness, Tingling, Other - Integumentary Integumentary: absent: As Per HPI, Acne, Alopecia, Bleeding Lesions, Change in Hair, Change in Nails, Change in Pigmentation, Changing Lesions, Dry Skin, Erythema, Furuncle, Hirsutism, Lesions, New Lesions, Non-Healing Lesions, Photosensitivity, Pruritus, Rash, Skin Pain, Skin Ulcer, Sores, Striae, Swelling , Unusual Bruising, Wounds, Jaundice, Other - Neurological Neurological: absent: As Per HPI, Abnormal Gait, Abnormal Hearing, Abnormal Movements, Abnormal Speech, Behavioral Changes, Burning Sensations, Confusion, Convulsions, Disequilibrium, Dizziness, Numbness, Focal Weakness, Frequent Falls , Headaches, Lack of Coordination, Loss of Vision, Memory Loss, Paresthesias, Radicular Pain, Restless Legs, Sensory Deficit, Syncope, Tingling, Tremor, Vertigo, Weakness, Other Visual Disturbances, Other - Psychiatric Psychiatric: absent: As Per HPI, Abnormal Sleep Pattern, Anhedonia, Anxiety, Auditory Hallucinations, Behavioral Changes, Change in Appetite, Change in Libido, Confusion, Depression, Difficulty Concentrating, Hallucinations, Homicidal Ideation, Hopelessness, Irritability, Memory Loss, Mood Swings, Panic Attacks, Paranoia, Suicidal Ideation, Visual Hallucinations, Tactile Hallucinations, Other - Endocrine Endocrine: absent: As Per HPI, Change in Body Appearance, Change in Libido, Cold Intolorance, Deepening of Voice, Excessive Sweating, Fatigue, Flushing, Heat Intolorance, Increase in Ring/Shoe/Hat Size, Palpitations, Polydipsia, Polyphagia, Polyuria, Other - Hematologic/Lymphatic Hematologic: absent: As Per HPI, Easy Bleeding, Easy Bruising, Lymphadenopathy, Other Past Patient History - Infectious Disease Hx of Infectious Diseases: None - Past Medical History & Family History Past Medical History?: Yes - Past Social History Smoking Status: Former Smoker - CARDIAC Hx Cardiac Disorders: No Hx Angina: No Hx Atrial Fibrillation: No Hx Cardia Arrhythmia: No Hx Circulatory Problems: No Hx Congestive Heart Failure: No Hx Heart Attack: No Hx Heart Murmur: No Hx Heart Transplant: No Hx Hypercholesterolemia: No Hx Hypertension: No Hx Hypotension: No Hx Internal Defibrillator: No Hx Mitral Valve Prolapse: No Hx Pacemaker: No Hx Peripheral Edema: No Hx Peripheral Vascular Disease: No - PULMONARY Hx Respiratory Disorders: No - NEUROLOGICAL Hx Dizziness: Yes - HEENT Hx Cataracts: Yes - RENAL Hx Chronic Kidney Disease: No - ENDOCRINE/METABOLIC Hx Diabetes Mellitus Type 2: Yes - HEMATOLOGICAL/ONCOLOGICAL Hx Blood Disorders: No - INTEGUMENTARY Hx Dermatological Problems: No - MUSCULOSKELETAL/RHEUMATOLOGICAL Hx Falls: No - GASTROINTESTINAL Hx Constipation: Yes - GENITOURINARY/GYNECOLOGICAL Hx Genitourinary Disorders: No - PSYCHIATRIC Hx Substance Use: No - SURGICAL HISTORY Hx Surgeries: No - ANESTHESIA Hx Anesthesia: No Meds Allergies/Adverse Reactions: Allergies Allergy/AdvReac Type Severity Reaction Status Date / Time No Known Allergies Allergy Verified 08/01/17 14:42 - Medications Medications: Current Medications Albuterol/Ipratropium (Duoneb 3 Mg/0.5 Mg (3 Ml) Ud) 3 ml INH RQID [facility] Last Admin: 08/05/17 19:29 Dose: 3 ml Azithromycin (Zithromax) 250 mg PO DAILY [facility] Last Admin: 08/05/17 09:42 Dose: 250 mg Heparin Sodium (Porcine) (Heparin) 5,000 units SC Q12 [facility] Last Admin: 08/05/17 21:11 Dose: 5,000 units Insulin Detemir (Levemir) 16 unit SC DAILY [facility] Last Admin: 08/05/17 09:42 Dose: 16 unit Insulin Human Regular (Novolin R) 0 unit SC ACHS [facility] PRN Reason: Protocol Last Admin: 08/05/17 16:56 Dose: 6 unit Pantoprazole Sodium (Protonix Ec Tab) 40 mg PO DAILY [facility] Last Admin: 08/05/17 09:42 Dose: 40 mg Promethazine HCl/Dextromethorphan (Phenergan Dm Syrup) 10 ml PO HS PRN PRN Reason: Cough Physical Exam - Constitutional Appears: Non-toxic - Head Exam Head Exam: NORMAL INSPECTION - Eye Exam Eye Exam: Normal appearance - ENT Exam ENT Exam: Mucous Membranes Moist - Neck Exam Neck exam: Positive for: Full Rom - Respiratory Exam Respiratory Exam: NORMAL BREATHING PATTERN - Cardiovascular Exam Cardiovascular Exam: REGULAR RHYTHM - GI/Abdominal Exam GI & Abdominal Exam: Normal Bowel Sounds - Rectal Exam Rectal Exam: Deferred - Extremities Exam Extremities exam: Positive for: normal inspection - Back Exam Back exam: NORMAL INSPECTION - Neurological Exam Neurological exam: Alert, Oriented x3 - Psychiatric Exam Psychiatric exam: Normal Affect - Skin Skin Exam: Intact, Warm Results - Vital Signs Recent Vital Signs: Last Vital Signs Temp 97.9 F 08/05/17 15:00 Pulse 80 08/05/17 15:00 Resp 20 08/05/17 15:00 BP 148/72 08/05/17 19:12 Pulse Ox 98 08/05/17 15:00 - Labs Result Diagrams: 08/05/17 07:44 08/07/17 08:47 Labs: Laboratory Results - last 24 hr 08/05/17 08/05/17 08/05/17 06:55 07:44 07:44 WBC RBC Hgb Hct MCV MCH MCHC RDW Plt Count MPV Neut % (Auto) Lymph % (Auto) [place] % (Auto) Eos % (Auto) Baso % (Auto) Neut # Lymph # [place] # Eos # Baso # Sodium 135 Potassium 3.9 Chloride 104 Carbon Dioxide 24 Anion Gap 11 BUN 10 Creatinine 0.9 Est GFR ( Amer) > 60 Est GFR (Non-Af Amer) > 60 POC Glucose (mg/dL) 221 H Random Glucose 208 H Calcium 7.6 L Total Bilirubin 1.2 AST 319 H D ALT 931 H D Alkaline Phosphatase 207 H D Troponin I 0.0140 NT-Pro-B Natriuret Pep 3700 H Total Protein 5.2 L Albumin 2.7 L Globulin 2.4 Albumin/Globulin Ratio 1.1 Hepatitis A IgM Ab Negative Hep Bs Antigen Negative Hep B Core IgM Ab Negative Hepatitis C Antibody Negative 08/05/17 08/05/17 08/05/17 07:44 11:19 16:27 WBC 11.0 H D RBC 3.50 L Hgb 10.8 L Hct 32.4 L MCV 92.5 D MCH 30.9 MCHC 33.4 RDW 12.5 Plt Count 263 MPV 9.3 Neut % (Auto) 29.4 L Lymph % (Auto) 59.7 H [place] % (Auto) 7.8 Eos % (Auto) 2.3 Baso % (Auto) 0.8 Neut # 3.2 Lymph # 6.6 H [place] # 0.9 H Eos # 0.3 Baso # 0.1 Sodium Potassium Chloride Carbon Dioxide Anion Gap BUN Creatinine Est GFR ( Amer) Est GFR (Non-Af Amer) POC Glucose (mg/dL) 293 H 332 H Random Glucose Calcium Total Bilirubin AST ALT Alkaline Phosphatase Troponin I NT-Pro-B Natriuret Pep Total Protein Albumin Globulin Albumin/Globulin Ratio Hepatitis A IgM Ab Hep Bs Antigen Hep B Core IgM Ab Hepatitis C Antibody - EKG Data EKG Interpreted by: Myself EKG shows normal: Sinus rhythm Assessment & Plan (1) Syncope Assessment and Plan: I reviewed the echocardiogram and discussed with the patient and his family. Left ventricular function is normal. There are no regional wall motion abnormalities. The patient's presentation is likely due to hyperglycemia. I discussed the importance of medical therapy and blood glucose control Status: Acute (2) HTN (hypertension) Assessment and Plan: patient had a period of hypotension, likely in association of hyperglycemia. I recommend blood pressure control. SACHI inhibitor or ARB given diabetes, Status: Acute (3) Diabetes mellitus Assessment and Plan: risk factor for CAD. I discussed outpatient stress test for risk factor stratification. Status: Acute
--- NOTE | 2017-08-05 21:23 | CP.PCM.CON ---
History of Present Illness - History of Present Illness History of Present Illness: patient seen/examined. full consutl to follow. Patient has a longstanding history of DM, HTN who presents with markedly elevated blood sugar. Had an episode of dizziness and near syncope. echocardiogram performed and reviewed. normal left ventricular function. no regional wall motion abnormalities. Recommend medical therapy. will schedule outpatient stress test for risk factor stratification. Past Patient History - Infectious Disease Hx of Infectious Diseases: None - Past Medical History & Family History Past Medical History?: Yes - Past Social History Smoking Status: Former Smoker - CARDIAC Hx Cardiac Disorders: No Hx Angina: No Hx Atrial Fibrillation: No Hx Cardia Arrhythmia: No Hx Circulatory Problems: No Hx Congestive Heart Failure: No Hx Heart Attack: No Hx Heart Murmur: No Hx Heart Transplant: No Hx Hypercholesterolemia: No Hx Hypertension: No Hx Hypotension: No Hx Internal Defibrillator: No Hx Mitral Valve Prolapse: No Hx Pacemaker: No Hx Peripheral Edema: No Hx Peripheral Vascular Disease: No - PULMONARY Hx Respiratory Disorders: No - NEUROLOGICAL Hx Dizziness: Yes - HEENT Hx Cataracts: Yes - RENAL Hx Chronic Kidney Disease: No - ENDOCRINE/METABOLIC Hx Diabetes Mellitus Type 2: Yes - HEMATOLOGICAL/ONCOLOGICAL Hx Blood Disorders: No - INTEGUMENTARY Hx Dermatological Problems: No - MUSCULOSKELETAL/RHEUMATOLOGICAL Hx Falls: No - GASTROINTESTINAL Hx Constipation: Yes - GENITOURINARY/GYNECOLOGICAL Hx Genitourinary Disorders: No - PSYCHIATRIC Hx Substance Use: No - SURGICAL HISTORY Hx Surgeries: No - ANESTHESIA Hx Anesthesia: No Meds Allergies/Adverse Reactions: Allergies Allergy/AdvReac Type Severity Reaction Status Date / Time No Known Allergies Allergy Verified 08/01/17 14:42 - Medications Medications: Current Medications Albuterol/Ipratropium (Duoneb 3 Mg/0.5 Mg (3 Ml) Ud) 3 ml INH RQID [facility] Last Admin: 08/05/17 19:29 Dose: 3 ml Azithromycin (Zithromax) 250 mg PO DAILY [facility] Last Admin: 08/05/17 09:42 Dose: 250 mg Heparin Sodium (Porcine) (Heparin) 5,000 units SC Q12 [facility] Last Admin: 08/05/17 21:11 Dose: 5,000 units Insulin Detemir (Levemir) 16 unit SC DAILY [facility] Last Admin: 08/05/17 09:42 Dose: 16 unit Insulin Human Regular (Novolin R) 0 unit SC ACHS [facility] PRN Reason: Protocol Last Admin: 08/05/17 16:56 Dose: 6 unit Pantoprazole Sodium (Protonix Ec Tab) 40 mg PO DAILY [facility] Last Admin: 08/05/17 09:42 Dose: 40 mg Promethazine HCl/Dextromethorphan (Phenergan Dm Syrup) 10 ml PO HS PRN PRN Reason: Cough Results - Vital Signs Recent Vital Signs: Last Vital Signs Temp 97.9 F 08/05/17 15:00 Pulse 80 08/05/17 15:00 Resp 20 08/05/17 15:00 BP 148/72 08/05/17 19:12 Pulse Ox 98 08/05/17 15:00 - Labs Result Diagrams: 08/05/17 07:44 08/05/17 07:44 Labs: Laboratory Results - last 24 hr 08/05/17 08/05/17 08/05/17 06:55 07:44 07:44 WBC RBC Hgb Hct MCV MCH MCHC RDW Plt Count MPV Neut % (Auto) Lymph % (Auto) [place] % (Auto) Eos % (Auto) Baso % (Auto) Neut # Lymph # [place] # Eos # Baso # Sodium 135 Potassium 3.9 Chloride 104 Carbon Dioxide 24 Anion Gap 11 BUN 10 Creatinine 0.9 Est GFR ( Amer) > 60 Est GFR (Non-Af Amer) > 60 POC Glucose (mg/dL) 221 H Random Glucose 208 H Calcium 7.6 L Total Bilirubin 1.2 AST 319 H D ALT 931 H D Alkaline Phosphatase 207 H D Troponin I 0.0140 NT-Pro-B Natriuret Pep 3700 H Total Protein 5.2 L Albumin 2.7 L Globulin 2.4 Albumin/Globulin Ratio 1.1 Hepatitis A IgM Ab Negative Hep Bs Antigen Negative Hep B Core IgM Ab Negative Hepatitis C Antibody Negative 08/05/17 08/05/17 08/05/17 07:44 11:19 16:27 WBC 11.0 H D RBC 3.50 L Hgb 10.8 L Hct 32.4 L MCV 92.5 D MCH 30.9 MCHC 33.4 RDW 12.5 Plt Count 263 MPV 9.3 Neut % (Auto) 29.4 L Lymph % (Auto) 59.7 H [place] % (Auto) 7.8 Eos % (Auto) 2.3 Baso % (Auto) 0.8 Neut # 3.2 Lymph # 6.6 H [place] # 0.9 H Eos # 0.3 Baso # 0.1 Sodium Potassium Chloride Carbon Dioxide Anion Gap BUN Creatinine Est GFR ( Amer) Est GFR (Non-Af Amer) POC Glucose (mg/dL) 293 H 332 H Random Glucose Calcium Total Bilirubin AST ALT Alkaline Phosphatase Troponin I NT-Pro-B Natriuret Pep Total Protein Albumin Globulin Albumin/Globulin Ratio Hepatitis A IgM Ab Hep Bs Antigen Hep B Core IgM Ab Hepatitis C Antibody
--- NOTE | 2017-08-05 23:12 | CARD ---
APPROVED REPORT EXAM: Two-dimensional and M-mode echocardiogram with Doppler and color Doppler. Other Information Quality : GoodRhythm : INDICATION Chest Pain RISK FACTORS Hypertension 2D DIMENSIONS IVSd0.9 (0.7-1.1cm)LVDd4.6 (3.9-5.9cm) PWd1.0 (0.7-1.1cm)LVDs3.3 (2.5-4.0cm) FS (%) 29.2 %LVEF (%)56.0 (>50%) M-Mode DIMENSIONS RVDd2.00 (2.1-3.2cm)Left Atrium (MM)3.98 (2.5-4.0cm) IVSd0.79 (0.7-1.1cm)Aortic Root3.03 (2.2-3.7cm) LVDd4.86 (4.0-5.6cm)Aortic Cusp Exc.1.59 (1.5-2.0cm) PWd0.91 (0.7-1.1cm)FS (%) 34 % LVDs3.19 (2.0-3.8cm)LVEF (%)63 (>50%) Mitral Valve MV E Jqvmrmal649.3cm/sMV A Evnlmdxo82.4cm/sE/A ratio1.5 TDI E/Lateral E'0.0E/Medial E'0.0 Tricuspid Valve TR Peak [id number]/sTR Peak Gr.[id number] LEFT VENTRICLE The left ventricle is normal size. There is normal left ventricular wall thickness. Left ventricle systolic function is normal. The Ejection Fraction is 55-60%. There is normal LV segmental wall motion. The left ventricular diastolic function is normal. RIGHT VENTRICLE The right ventricle is normal size. There is normal right ventricular wall thickness. The right ventricular systolic function is normal. ATRIA The left atrium size is normal. The right atrium size is normal. The interatrial septum is intact with no evidence for an atrial septal defect. AORTIC VALVE The aortic valve is normal in structure. No aortic regurgitation is present. There is no aortic valvular stenosis. MITRAL VALVE The mitral valve is normal in structure. There is no evidence of mitral valve prolapse. There is no mitral valve stenosis. Mitral regurgitation is mild. TRICUSPID VALVE The tricuspid valve is normal in structure. There is mild tricuspid regurgitation. Right ventricular systolic pressure is estimated at 40-50 mmHg. There is mild-moderate pulmonary hypertension. PULMONIC VALVE The pulmonic valve is not well visualized. There is no pulmonic valvular regurgitation. GREAT VESSELS The aortic root is normal in size. PERICARDIAL EFFUSION There is no significant pericardial effusion. <Conclusion> Left ventricle systolic function is normal. The Ejection Fraction is 55-60%. No aortic regurgitation is present. Mitral regurgitation is mild. There is mild tricuspid regurgitation. There is mild-moderate pulmonary hypertension. There is no pulmonic valvular regurgitation.
[2017-08-06] MEDS: Albuterol-Ipratrop 3 mg / 0.5 (3 ml) UD INH SCH ×4 (07:38→19:41)
--- NOTE | 2017-08-06 08:22 | CP.PCM.PN ---
Subjective - Date & Time of Evaluation Date of Evaluation: 08/06/17 Time of Evaluation: 08:12 - Subjective Subjective: Pt feels well. No CP, no SOB, (+) did not sleeep c/o urinating alot Objective - Vital Signs/Intake and Output Vital Signs (last 24 hours): Temp Pulse Resp BP Pulse Ox 98.5 F 88 20 146/68 96 08/06/17 08:15 08/06/17 08:15 08/06/17 08:15 08/06/17 08:15 08/06/17 08:15 Intake and Output: 08/06/17 08/06/17 06:59 18:59 Intake Total 300 Output Total 700 Balance -400 - Medications Medications: Current Medications Albuterol/Ipratropium (Duoneb 3 Mg/0.5 Mg (3 Ml) Ud) 3 ml INH RQID [facility] Last Admin: 08/06/17 07:38 Dose: 3 ml Azithromycin (Zithromax) 250 mg PO DAILY [facility] Last Admin: 08/05/17 09:42 Dose: 250 mg Furosemide (Lasix) 20 mg IVP STAT STA Stop: 08/06/17 08:18 Heparin Sodium (Porcine) (Heparin) 5,000 units SC Q12 [facility] Last Admin: 08/05/17 21:11 Dose: 5,000 units Insulin Detemir (Levemir) 22 unit SC DAILY [facility] Insulin Human Regular (Novolin R) 0 unit SC ACHS [facility] PRN Reason: Protocol Last Admin: 08/05/17 22:01 Dose: 3 unit Pantoprazole Sodium (Protonix Ec Tab) 40 mg PO DAILY [facility] Last Admin: 08/05/17 09:42 Dose: 40 mg Promethazine HCl/Dextromethorphan (Phenergan Dm Syrup) 10 ml PO HS PRN PRN Reason: Cough - Labs Labs: 08/05/17 07:44 08/05/17 07:44 - Constitutional Appears: No Acute Distress - Eye Exam Eye Exam: Periorbital tenderness - ENT Exam ENT Exam: Mucous Membranes Moist - Neck Exam Neck Exam: Full ROM. absent: Lymphadenopathy - Respiratory Exam Respiratory Exam: Clear to Ausculation Bilateral. absent: Decreased Breath Sounds, Rales, Rhonchi, Wheezes - Cardiovascular Exam Cardiovascular Exam: REGULAR RHYTHM, +S1, +S2. absent: Diastolic murmur, Gallop , JVD - GI/Abdominal Exam GI & Abdominal Exam: Soft. absent: Tenderness, Mass - Exam Exam: absent: Scrotal Swelling - Extremities Exam Extremities Exam: Full ROM, Normal Capillary Refill, Pedal Edema. absent: Calf Tenderness, Joint Swelling Assessment and Plan - Assessment and Plan (Free Text) Assessment: Ac Bronchitis HTN, unc NIDDM Cont meds Cardio note reviewed Lasix + check PSA Add SACHI
[2017-08-06] MEDS: (Novolin R) Insulin Human Regular 100 units/ml vial SC SCH ×4 (08:28→21:49)
[2017-08-06] MEDS: Pantoprazole 40 mg EC Tab PO SCH (10:22)
[2017-08-06] MEDS: Insulin Detemir 100 units/ml Vial (Levemir) SC SCH (10:30)
[2017-08-07] MEDS: Albuterol-Ipratrop 3 mg / 0.5 (3 ml) UD INH SCH ×4 (07:35→19:33)
[2017-08-07] MEDS: (Novolin R) Insulin Human Regular 100 units/ml vial SC SCH ×4 (08:13→21:09)
[2017-08-07 09:25] LABS: ALB/GLOB RATIO 1.3 (1.0-2.1); ALKALINE PHOSPHATASE 215 U/L (38-126); ALT/SGPT 655 U/L (21-72); AST/SGOT 125 U/L (17-59); BILIRUBIN,TOTAL 0.9 mg/dL (0.2-1.3); BLOOD UREA NITROGEN 10 mg/dL (9-20); CALCIUM 8.4 mg/dl (8.6-10.4); CARBON DIOXIDE 31 mmol/L (22-30); CHLORIDE 94 mmol/L (98-107); GFR AFRICAN-AMERICAN > 60; GLUCOSE,RANDOM 356 mg/dL (75-110); POTASSIUM 3.9 mmol/L (3.6-5.2); SODIUM 131 mmol/L (132-148); TOTAL PROTEIN 5.8 g/dL (6.3-8.3)
[2017-08-07] MEDS: Insulin Detemir 100 units/ml Vial (Levemir) SC SCH (09:27)
[2017-08-07] MEDS: Pantoprazole 40 mg EC Tab PO SCH (09:28)
[2017-08-07 09:40] LABS: PROSTATE SPECIFIC ANTIGEN 1.34 ng/mL (0.00-4.0)
--- NOTE | 2017-08-07 14:58 | CP.PCM.PN ---
Subjective - Date & Time of Evaluation Date of Evaluation: 08/07/17 Time of Evaluation: 14:56 - Subjective Subjective: S: Feel better. Objective - Vital Signs/Intake and Output Vital Signs (last 24 hours): Temp Pulse Resp BP Pulse Ox 98.5 F 83 20 130/68 96 08/07/17 07:30 08/07/17 07:30 08/07/17 07:30 08/07/17 07:30 08/07/17 07:30 Intake and Output: 08/07/17 08/07/17 06:59 18:59 Intake Total 500 Output Total 1000 Balance -500 - Medications Medications: Current Medications Albuterol/Ipratropium (Duoneb 3 Mg/0.5 Mg (3 Ml) Ud) 3 ml INH RQID [facility] Last Admin: 08/07/17 11:18 Dose: 3 ml Azithromycin (Zithromax) 250 mg PO DAILY [facility] Last Admin: 08/07/17 09:28 Dose: 250 mg Heparin Sodium (Porcine) (Heparin) 5,000 units SC Q12 [facility] Last Admin: 08/07/17 09:27 Dose: 5,000 units Insulin Detemir (Levemir) 22 unit SC DAILY [facility] Last Admin: 08/07/17 09:27 Dose: 22 unit Insulin Human Regular (Novolin R) 0 unit SC ACHS [facility] PRN Reason: Protocol Last Admin: 08/07/17 12:04 Dose: 8 unit Lisinopril (Zestril) 5 mg PO DAILY [facility] Last Admin: 08/07/17 09:28 Dose: 5 mg Pantoprazole Sodium (Protonix Ec Tab) 40 mg PO DAILY [facility] Last Admin: 08/07/17 09:28 Dose: 40 mg Promethazine HCl/Dextromethorphan (Phenergan Dm Syrup) 10 ml PO HS PRN PRN Reason: Cough - Labs Labs: 08/05/17 07:44 08/07/17 08:47 - Constitutional Appears: Non-toxic - Head Exam Head Exam: NORMAL INSPECTION - ENT Exam ENT Exam: Normal Exam - Neck Exam Neck Exam: Normal Inspection - Respiratory Exam Respiratory Exam: NORMAL BREATHING PATTERN - Cardiovascular Exam Cardiovascular Exam: REGULAR RHYTHM - GI/Abdominal Exam GI & Abdominal Exam: Soft - Rectal Exam Rectal Exam: Deferred - Extremities Exam Extremities Exam: absent: Pedal Edema - Neurological Exam Neurological Exam: Awake - Psychiatric Exam Psychiatric exam: Normal Affect Assessment and Plan (1) Uncontrolled diabetes mellitus Status: Acute (2) Hyponatremia Status: Acute - Assessment and Plan (Free Text) Assessment: A/P : Continue medications.
[2017-08-08] MEDS: Albuterol-Ipratrop 3 mg / 0.5 (3 ml) UD INH SCH ×4 (07:12→19:49)
[2017-08-08] MEDS: (Novolin R) Insulin Human Regular 100 units/ml vial SC SCH ×3 (08:32→19:03)
[2017-08-08 09:25] VITALS: RESP 20
[2017-08-08] MEDS: Pantoprazole 40 mg EC Tab PO SCH (09:26)
--- NOTE | 2017-08-08 09:35 | CP.PCM.PN ---
Subjective - Date & Time of Evaluation Date of Evaluation: 08/08/17 Time of Evaluation: 09:10 - Subjective Subjective: Pt w/ dry cough, no more SOB when lying down. No CP, no palpitation nor dizziness. No n/v, no diarrhea Objective - Vital Signs/Intake and Output Vital Signs (last 24 hours): Temp Pulse Resp BP Pulse Ox 98.0 F 89 20 154/63 H 95 08/08/17 09:00 08/08/17 09:00 08/08/17 09:00 08/08/17 09:00 08/08/17 09:00 Intake and Output: 08/08/17 08/08/17 06:59 18:59 Intake Total 550 Output Total 1250 Balance -700 - Medications Medications: Current Medications Albuterol/Ipratropium (Duoneb 3 Mg/0.5 Mg (3 Ml) Ud) 3 ml INH RQID [facility] Last Admin: 08/08/17 07:12 Dose: 3 ml Azithromycin (Zithromax) 250 mg PO DAILY [facility] Last Admin: 08/07/17 09:28 Dose: 250 mg Heparin Sodium (Porcine) (Heparin) 5,000 units SC Q12 [facility] Last Admin: 08/07/17 21:07 Dose: 5,000 units Insulin Detemir (Levemir) 22 unit SC DAILY [facility] Last Admin: 08/07/17 09:27 Dose: 22 unit Insulin Human Regular (Novolin R) 0 unit SC ACHS [facility] PRN Reason: Protocol Last Admin: 08/08/17 08:32 Dose: 1 unit Lisinopril (Zestril) 5 mg PO DAILY [facility] Last Admin: 08/07/17 09:28 Dose: 5 mg Metformin HCl (Glucophage) 500 mg PO BID [facility] Pantoprazole Sodium (Protonix Ec Tab) 40 mg PO DAILY [facility] Last Admin: 08/07/17 09:28 Dose: 40 mg Promethazine HCl/Dextromethorphan (Phenergan Dm Syrup) 10 ml PO HS PRN PRN Reason: Cough - Labs Labs: 08/05/17 07:44 08/07/17 08:47 - Constitutional Appears: No Acute Distress - Eye Exam Eye Exam: Normal appearance - ENT Exam ENT Exam: Mucous Membranes Moist - Respiratory Exam Respiratory Exam: Decreased Breath Sounds, Wheezes. absent: Rales, Rhonchi - Cardiovascular Exam Cardiovascular Exam: REGULAR RHYTHM, +S1, +S2, Murmur. absent: Gallop, JVD - GI/Abdominal Exam GI & Abdominal Exam: Soft. absent: Tenderness, Mass - Extremities Exam Extremities Exam: Full ROM, Normal Capillary Refill. absent: Calf Tenderness, Joint Swelling, Pedal Edema Assessment and Plan - Assessment and Plan (Free Text) Assessment: Unc NIDDM; ac Bronchitis NIDDM, HTN, ? CHF cont meds but inc lisinopril for subacute c/o still unsteady gait
[2017-08-08] MEDS: Insulin Detemir 100 units/ml Vial (Levemir) SC SCH (10:00)
[2017-08-08] MEDS ORDERED: Insulin Detemir 100 units/ml Vial (Levemir) SC SCH ×2 (14:57→15:23)
[2017-08-08 16:26] VITALS: BP 125/70; PULSE 87; TEMP 98.3; O2SAT 94
== END 2017-08-08 21:30 | DRG 637 ==
LOC: C.ER 13:38 → C.9E 16:31 → C.9I 17:40 → C.3T 08-03 13:12
PROVIDERS: ADMIT Internal Medicine; ATTEND Internal Medicine
DX: E11.65 Type 2 diabetes mellitus with hyperglycemia (principal); E11.10 Type 2 diabetes mellitus with ketoacidosis without coma; E86.0 Dehydration; J20.9 Acute bronchitis, unspecified; K76.0 Fatty (change of) liver, not elsewhere classified; E87.1 Hypo-osmolality and hyponatremia; Z79.4 Long term (current) use of insulin; E78.5 Hyperlipidemia, unspecified; R62.7 Adult failure to thrive; Z87.891 Personal history of nicotine dependence

== ENCOUNTER 2017-10-03 10:37 | Day surgery (SDC) | payer MEDICARE ==
[2017-10-03] MEDS ORDERED: Lidocaine Hydrochloride 5 ML INJ ONE (12:34)
[2017-10-03] MEDS ORDERED: Midazolam 2 MG/2 ML VIAL ONE (12:34)
[2017-10-03] MEDS ORDERED: Propofol 10 mg/ml Inj (20 ML) ONE (12:34)
[2017-10-03] MEDS ORDERED: Lidocaine 1% Inj (20ml) ONE (12:38)
[2017-10-03] MEDS ORDERED: ceFAZolin 1 gm in NS 1 GM/100 ML BAG IVPB ONE (12:38)
[2017-10-03] MEDS ORDERED: Bupivacaine HCl 0.25% PF (10 ml) Inj ONE (12:39)
[2017-10-03] MEDS ORDERED: HYDROmorphone 0.5 mg/0.5 ml ISec IVP PRN (13:40)
[2017-10-03] MEDS ORDERED: Oxycodone/Acetaminophen 5/325 mg Tab PO PRN (13:42)
[2017-10-03 15:42] VITALS: BP 149/55; PULSE 85; RESP 18; TEMP 97.2; O2SAT 98
--- NOTE | 2017-10-04 05:15 | OP ---
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 POSTOPERATIVE DIAGNOSIS: 7 cm posterior neck neoplasm. PROCEDURES PERFORMED: 1. Radical resection of 17 of 7 cm posterior neck neoplasm ([id number]). 2. Advancement flap closure of 42 sq cm ([id number]). SURGEON: Paddy Nance MD ANESTHESIA: General. BLOOD LOSS: 30 mL. POSTOP CONDITION: Stable. INDICATIONS FOR SURGERY: This is an 82-year-old male with a large mass of his posterior neck, who now presents for a wide deep excision. PROCEDURE: The patient was taken to the operating room and IV sedation was administered. The posterior neck was prepped and draped. A generous elliptical incision was made surrounding the mass, and the mass was dissected through the fascia into the muscle layer and completely excised. Multiple bleeders were either repaired or cauterized using the Bovie. Once adequate hemostasis was obtained, the wound was irrigated with copious amounts of saline solution. Next, full-thickness advancement flaps were raised including muscle, measuring approximately 42 sq cm total area. Counter incisions were then made and the advancement flap closure was performed with multiple layers of heavy Monocryl subcuticular Monocryl and skin clips. The patient tolerated the procedure well and returned to recovery room in stable condition. Paddy Nance MD
== END 2017-10-03 15:50 | disposition home or self-care (01) ==
LOC: C.SDS 10:37
PROVIDERS: ATTEND Surgery
DX: D48.7 Neoplasm of uncertain behavior of other specified sites (principal)
CPT/HCPCS: 14301; 21558; 82948; 88307; J0690; J2250; J2704; J3010